=== PATIENT | female | born 1965 | race Caucasian/White ===

== ENCOUNTER 2017-03-31 13:58 | Emergency (ER) | payer BC ==
[2017-03-31] MEDS ORDERED: KETOROLAC 30 MG/ML VIAL IVP ONE (14:18)
[2017-03-31] MEDS ORDERED: MORPHINE SULFATE 5 MG/ML PFS IVP ONE (14:18)
--- NOTE | 2017-03-31 14:22 | Emergency Department Record ---
History of Present Illness - General Chief complaint: Pain Stated complaint: RT SIDE RIB INJURY Time Seen by Provider: 03/31/17 14:03 Source: Patient, Family Mode of Arrival: Wheelchair Limitations: No limitations - History of Present Illness Initial comments: 51 yo female presents with right upper rib pain. She was leaning over placing object from one tote into another and felt a pop in a right upper anterior rib. She not has pain with movement or palpation of the area. It hurts to move, twist or stand up straight. She points to the upper chest at the sternal border. She has had some pain mild at that location for a couple days. No cough. No fever. No abdominal or back pain. MD Complaint: Other (rib pain) Onset/Timin -: Minutes(s) Location: Right History of Same: No Radiation: None Severity scale (1-10): 10 Quality: Sharp Consistency: Constant Improves with: Nothing Worsens with: Exertion, Walking Associated Symptoms: Denies other symptoms - Related Data Home Medications Medication Instructions Recorded Confirmed Last Taken Amitriptyline HCl [Amitriptyline 25 mg PO DAILY 03/31/17 03/31/17 Unknown HCl] Atorvastatin Calcium 20 mg PO DAILY 03/31/17 03/31/17 Unknown Gabapentin [Neurontin] 900 mg PO QHS 03/31/17 03/31/17 Unknown Lisinopril [Lisinopril] 20 mg PO DAILY 03/31/17 03/31/17 Unknown Pramipexole Di-HCl [Mirapex] 1 mg PO QHS 03/31/17 03/31/17 Unknown Previous Rx's Medication Instructions Recorded Diazepam [Valium] 5 mg PO Q8H #15 tab 03/31/17 Hydrocodone/Acetaminophen [Grace 1 each PO Q8H #15 tablet 03/31/17 7.5-325 Tablet] Naproxen [Naprosyn] 500 mg PO Q12H #20 tab 03/31/17 Allergies Allergy/AdvReac Type Severity Reaction Status Date / Time No Known Drug Allergies Allergy Verified 03/31/17 14:13 Travel Screening - Travel/Exposure Within Last 30 Days Have you traveled within the last 30 days?: No Review of Systems Constitutional: Denies: Chills, Fever, Weakness Eyes: Denies: Eye discharge ENT: Denies: Congestion, Throat pain Respiratory: Denies: Cough, Dyspnea, Hemoptysis, Stridor, Wheezes Cardiovascular: Reports: Chest pain. Denies: Dyspnea on exertion, Edema, Palpitations, Syncope Endocrine: Denies: Fatigue, Polydipsia, Polyuria Gastrointestinal: Denies: Abdominal pain, Diarrhea, Nausea, Vomiting Genitourinary: Denies: Dysuria, Urgency Musculoskeletal: Denies: Arthralgia, Back pain, Joint swelling, Myalgia, Neck pain Skin: Denies: Bruising, Change in color, Rash Neurological: Denies: Headache, Numbness, Vertigo, Weakness Psychiatric: Denies: Anxiety Hematological/Lymphatic: Denies: Easy bleeding, Easy bruising Past Medical History - SOCIAL HISTORY Smoking Status: Current every day smoker Alcohol Use: Occassional Drug Use: None - RESPIRATORY Hx Respiratory Disorders: No - CARDIOVASCULAR Hx Cardio Disorders: Yes Hx Hypertension: Yes - NEURO Hx Neuro Disorders: No - GI Hx GI Disorders: No - Hx Genitourinary Disorders: No - ENDOCRINE Hx Endocrine Disorders: No - MUSCULOSKELETAL Hx Musculoskeletal Disorders: Yes - PSYCH Hx Psych Problems: Yes Hx Anxiety: Yes Hx Depression: Yes - HEMATOLOGY/ONCOLOGY Hx Hematology/Oncology Disorders: No Family Medical History Any Significant Family History?: No Physical Exam - General General Appearance: Alert, Oriented x3, Cooperative, No acute distress, Anxious (due to pain) Limitations: No limitations - Head Head exam: Atraumatic, Normocephalic, Normal inspection - Eye Eye exam: Normal appearance. negative: Conjunctival injection, Periorbital swelling - ENT ENT exam: Normal exam Ear exam: Normal external inspection Nasal Exam: Normal inspection Mouth exam: Normal external inspection - Neck Neck exam: Normal inspection, Full ROM. negative: Tenderness - Respiratory Respiratory exam: Normal lung sounds bilaterally, Chest wall tenderness (very focal and reproducible right sided rib/sternal junction pain, no palpable deformity). negative: Accessory muscle use, Decreased breath sounds, Respiratory distress - Cardiovascular Cardiovascular Exam: Normal rhythm, Normal heart sounds, Tachycardia Peripheral Pulses: 2+: Radial (R), Radial (L) - GI/Abdominal GI/Abdominal exam: Soft. negative: Tenderness - Rectal Rectal exam: Deferred - exam: Deferred - Extremities Extremities exam: Normal inspection, Full ROM, Normal capillary refill. negative: Tenderness - Back Back exam: Reports: Normal inspection, Full ROM, Other (old healed scars). Denies: CVA tenderness (R), CVA tenderness (L), Muscle spasm, Paraspinal tenderness, Rash noted, Tenderness, Vertebral tenderness - Neurological Neurological exam: Alert, Normal gait, Oriented X3 - Psychiatric Psychiatric exam: Anxious (due to pain), Normal affect, Normal mood - Skin Skin exam: Dry, Intact, Normal color, Warm Course Vital Signs 03/31/17 14:07 Temperature 98.8 F Pulse Rate 120 H Respiratory 20 Rate Blood Pressure 151/122 Pulse Ox 95 - Reevaluation(s) Reevaluation #1: The XR was negative for acute pathology, rib fracture, PTX 03/31/17 15:09 Reevaluation #2: The results were discussed with the patient She is starting to get relief 03/31/17 15:14 HR much improved with better pain control We discussed home care and reasons to return to the ED 03/31/17 Disposition Disposition: Discharge Clinical Impression: Rib pain on right side Disposition: Home, Self-Care Condition: (1) Good Instructions: Chest Wall Pain (ED) Additional Instructions: Rest and avoid lifting or activity Return if worse, short of breath, fever, cough, or any new concerns Prescriptions: Diazepam [Valium] 5 mg PO Q8H #15 tab Hydrocodone/Acetaminophen [Grace 7.5-325 Tablet] 1 each PO Q8H #15 tablet Naproxen [Naprosyn] 500 mg PO Q12H #20 tab.dr Forms: Patient Portal Access Quality - Quality Measures Quality Measures: N/A - Blood Pressure Screening View Details: Yes Blood Pressure Classification: Normal BP Reading Systolic Measurement: 105 Diastolic Measurement: 68 Screening for High Blood Pressure: < Normal BP, F/U Not Required > [[id number]] Normal BP Follow-up Interventions: No follow-up required
[2017-03-31] MEDS ORDERED: DIAZEPAM 5 MG/1 ML TUBX IVP ONE (14:58)
--- NOTE | 2017-04-02 14:19 | RADIOLOGY REPORT ---
EXAM: RIGHT RIBS WITH PA CHEST HISTORY: PATIENT BENT OVER TO PICK SOMETHING UP AND A RIGHT RIB POPPED. ANTERIOR UPPER RIGHT RIB PAIN. TECHNIQUE: A PA view of the chest and four views of the right ribs were obtained. Comparison: None. FINDINGS: Electrical stimulator leads are present within the mid thoracic region. The heart, mediastinum and pulmonary vasculature are normal. There are no acute infiltrates or effusions. There is no pneumothorax. There are old healed rib fractures bilaterally. There is no visible acute fracture. Mild arthritic changes are present within the spine and shoulders. There is mild levoconvex curvature within the thoracic spine and dextroconvex curvature within the lumbar spine. Post surgical changes are also noted within the lower lumbar spine. IMPRESSION: 1. NO ACUTE CHEST OR RIB PATHOLOGY. 2. OLD HEALED RIB FRACTURES BILATERALLY. JOB NUMBER: [id number] MTDD
== END 2017-03-31 15:29 | disposition home or self-care (01) ==
LOC: ER 13:58
DX: R07.81 Pleurodynia (principal); I10 Essential (primary) hypertension; Z87.891 Personal history of nicotine dependence
CPT/HCPCS: 99284 ×2; 96374; 96375; 71101; J1885; J2270; J3360

== ENCOUNTER 2018-02-06 13:11 | Day surgery (SDC) | payer OTHER ==
--- NOTE | 2018-02-06 06:38 | History and Physical Report ---
DATE: 02/06/18. CHIEF COMPLAINT AND HISTORY OF CHIEF COMPLAINT: This patient presents with a history of a postlumbar laminectomy radiculopathy. Due to the failure of all therapies and the lack of options including no further surgical options, she is here for intraspinal infusion trial with hydromorphone to determine if the implantation of a permanent system can be of any value in pain control. PAST MEDICAL HISTORY: Cardiac irregularity, arrhythmia, reflux esophagitis, restless leg syndrome. PAST SURGICAL HISTORY: Lumbar spinal surgery, hysterectomy. EMPLOYMENT STATUS: Off work. MEDICATIONS ON ADMISSION: To be provided. ALLERGIES: None listed. SOCIAL HISTORY: Smoking, caffeine. FAMILY HISTORY: Hypertension, cancer, coronary artery disease. REVIEW OF SYSTEMS: The patient is painful and fully oriented and appropriate. The remainder of the systems review shows glasses, peripheral edema, irregular heart rate, gastric pain, depression, difficulty sleeping. PHYSICAL EXAMINATION: General: Height and weight are not available. Weight: Unavailable. Vital Signs: Unavailable. HEENT: Within normal limits. Lungs: Clear. Heart: Regular rate and rhythm. Abdomen: Nontender. Musculoskeletal: Examination of the musculoskeletal system shows diffuse tenderness throughout the lumbar spine adjacent to a large laminectomy scar. Range of motion does produce pain throughout the low back and extending into the lower extremities. Her lower extremity motor and sensory field function shows sensory abnormalities across the front and back surface of both legs. Her motor function shows a generalized weakness across the front and back surface with distributions at L4 and l5. Ambulation: Assistive device utilized. Neurologic: Cranial nerves are intact. IMPRESSION: 1. POSTLUMBAR LAMINECTOMY SYNDROME, ICD-10 CODE M96.1. 2. LUMBAR RADICULOPATHY, ICD-10 CODE M54.16 AND M54.17. PLAN: The patient is here for an implanted spinal catheter infusion trial with hydromorphone. We will implant the catheter surgically to help prevent the incidence of spinal headaches and to reduce the number of instrumentations in the spine. An epidural blood patch will be performed as an ancillary measure to help reduce the incidence of spinal headaches. An overnight stay will be encouraged to maintain activity levels. The potential risks, side effects, and complications including spinal cord trauma, paralysis, nerve root injury, spinal headaches, and failure of the therapy have all been discussed and reviewed. The patient understands and has agreed to proceed. We will consider the procedure outpatient although, as stated, an overnight stay will be encouraged. JOB NUMBER: [id number] cc: Swathi Tapia, Nurse Practitioner LIN
[~2018-02-06 13:11] MED LIST: ACETAMINOPHEN 1,000 MG/100 ML BTL IV ONE; CEFAZOLIN 2 Gram 2 GM/50 ML BAG IVPB ONE; FAMOTIDINE 20MG TABLET PO ONE; HYDROMORPHONE PF 2MG/ML AMP 0.008 MG in 0.9 % SODIUM CHLORIDE 10ML VIA 0.996 ML IV ONE; HYDROMORPHONE PF 2MG/ML AMP 4 MG in 0.9 % SODIUM CHLORIDE 500ML 498 ML IV ONE; MECLIZINE 25 MG TABLET PO ONE; METOCLOPRAMIDE 10 MG TABLET PO ONE
[2018-02-06] MEDS ORDERED: FENTANYL PF 100MCG/2ML VIAL IV ONE (13:12)
[2018-02-06] MEDS ORDERED: HYDROMORPHONE HCL 2 MG/ML VIAL IV ONE (13:12)
[2018-02-06] MEDS ORDERED: LIDOCAINE 2% MDV (20MG/ML) 20ML VIAL IV ONE (13:12)
[2018-02-06] MEDS ORDERED: BUPIVACAINE 0.5% W/EPI MPF 30 ML VIAL IVP ONE (13:12)
[2018-02-06] MEDS ORDERED: CEFAZOLIN 1G VIAL IM ONE (13:12)
[2018-02-06] MEDS ORDERED: PROPOFOL 10 MG/ML VIAL IV ONE (13:12)
[2018-02-06] MEDS ORDERED: LIDOCAINE 1% W/EPI 1:200,000 MPF 30ML SQ ONE (13:12)
[2018-02-06] MEDS ORDERED: MIDAZOLAM HCL 2MG/2ML VIAL IV ONE (13:12)
[2018-02-06] MEDS ORDERED: SENNOSIDES/DOCUSATE SODIUM UD CAPSULE PO PRN ×2 (16:44)
[2018-02-06] MEDS ORDERED: TEMAZEPAM 15 MG CAPSULE PO PRN ×2 (16:44)
[2018-02-06] MEDS ORDERED: DIPHENHYDRAMINE HCL 25 MG CAPSULE PO PRN (16:44)
[2018-02-06] MEDS ORDERED: HYDROMORPHONE HCL 2 MG/ML VIAL IM PRN ×2 (16:44)
[2018-02-06] MEDS ORDERED: HYDROCODONE/APAP 7.5/325MG TABLET PO PRN ×2 (16:44)
[2018-02-06] MEDS ORDERED: METOCLOPRAMIDE 10 MG TABLET PO PRN (16:44)
[2018-02-06] MEDS ORDERED: NALOXONE 0.4 MG/1 ML VIAL IVP PRN (16:44)
[2018-02-06] MEDS ORDERED: AL HYDROX/MAG HYDROX 30ML UD PO PRN (16:44)
[2018-02-06] MEDS ORDERED: ACETAMINOPHEN 325 MG TAB PO PRN ×2 (16:44)
[2018-02-06] MEDS ORDERED: DIPHENHYDRAMINE HCL 50 MG/ML VIAL IVP PRN ×2 (16:44)
[2018-02-06] MEDS ORDERED: OXYCODONE/APAP 10MG-325MG TABLET PO PRN (16:44)
[2018-02-06] MEDS ORDERED: METOCLOPRAMIDE HCL 10 MG/2 ML VIAL IVP PRN (16:44)
[2018-02-06] MEDS ORDERED: ALBUTEROL HFA 8 GM INHALER INH PRN (16:47)
[2018-02-06] MEDS ORDERED: ATORVASTATIN 20 MG TABLET PO SCH (22:00)
[2018-02-06] MEDS ORDERED: GABAPENTIN 300 MG CAPSULE PO SCH (22:00)
[2018-02-06] MEDS ORDERED: LOSARTAN POTASSIUM 25 MG TABLET PO SCH (22:00)
[2018-02-06] MEDS ORDERED: PRAMIPEXOLE DI-HCL 0.25 MG TABLET PO SCH (22:00)
[2018-02-06] MEDS: CEFAZOLIN 2 Gram 2 GM/50 ML BAG IVPB SCH (22:05)
[2018-02-06] MEDS: OXYCODONE/APAP 10MG-325MG TABLET PO PRN (22:19)
[2018-02-06] MEDS: DIPHENHYDRAMINE HCL 25 MG CAPSULE PO PRN (22:20)
[2018-02-07] MEDS: OXYCODONE/APAP 10MG-325MG TABLET PO PRN ×2 (02:06→05:52)
[2018-02-07] MEDS: RINGERS SOLUTION,LACTATED 1,000 ML IV SCH ×2 (02:08→02:12)
[2018-02-07] MEDS: DIPHENHYDRAMINE HCL 25 MG CAPSULE PO PRN (02:10)
[2018-02-07] MEDS ORDERED: ALBUTEROL SULFATE (0.083%) 2.5 MG/3 ML NEB INH ONE (06:34)
[2018-02-07] MEDS: CEFAZOLIN 2 Gram 2 GM/50 ML BAG IVPB SCH (06:43)
[2018-02-07] MEDS ORDERED: PANTOPRAZOLE SODIUM 40 MG TABLET PO SCH (07:00)
--- NOTE | 2018-02-07 21:47 | Operative Note - [facility] ---
DATE OF SURGERY: 02/06/18. PREOPERATIVE DIAGNOSIS: 1. POST LUMBAR LAMINECTOMY SYNDROME, ICD-10 CODE = M96.1. 2. LUMBAR RADICULOPATHY, ICD-10 CODE = M54.16 AND M54.17. SURGERY: 1. FLUOROSCOPIC-GUIDED ACCESS SPINAL SPACE AT L1-2, PLACEMENT OF THIN-WALLED SPINAL CATHETER T12. 2. DIAGNOSTIC MYELOGRAPHY WITH RADIOLOGIC SUPERVISION AND INTERPRETATION. 3. SPINAL OPIOID BOLUS HYDROMORPHONE 0.004 MG SPINAL SPACE. 4. INCISION, SUBCUTANEOUS DISSECTION, AND ANCHORING OF SPINAL CATHETER TO SUPRASPINOUS FASCIA WITH ANCHORING DEVICE AND NONABSORBABLE SUTURE. 5. INCISION, SUBCUTANEOUS DISSECTION, AND CREATION OF SUBCUTANEOUS POUCH AT RIGHT POSTERIOR GLUTEAL MARGIN, EVENTUALLY FOR PLACEMENT OF PUMP ITSELF. 6. TUNNELING SPINAL CATHETER INTO RIGHT POSTERIOR GLUTEAL POUCH. INTERFACE SPINAL CATHETER WITH SECONDARY SPINAL COMPONENT. SECOND CATHETER COMPONENT TUNNELED 6 CM SUPERIOR. 7. INTERFACE EXTERNAL CATHETER COMPONENT WITH SPINAL INFUSION PUMP EXTERNAL, SET TO DELIVER HYDROMORPHONE AT 0.08 MG PER DAY. 8. EPIDURAL BLOOD PATCH AT L2-3, 20 ML AUTOLOGOUS BLOOD STERILE TECHNIQUE FROM USING A #17 GAUGE SIX-INCH TUOHY NEEDLE WITH [id number]. 9. TRANSPORT PATIENT FLAT, PILLOW UNDER HEAD AND KNEES TO RECOVERY ROOM ASYMPTOMATIC, FULL UPPER AND LOWER EXTREMITY FUNCTIONALITY, NO UNUSUAL SYMPTOM PATTERNS, AWAKE AND RESPONSIVE. SURGEON: RAÚL SCALES D.O. ANESTHESIA: LOCAL SEDATION. ANESTHESIA PROVIDER: ANISHA SOLANO CRNA INDICATION: This patient presents with a history of mutiply-operated spine with fusion 3-4 to 5-1, pedicle screw, rods, and cages. Due to the failure of all therapies, she is here for a spinal opioid infusion trial with an implanted catheter with Hydromorphone to determine if the implantation of a permanent system can be of any value in pain control. PROCEDURE: Intravenous line, vital sign monitoring, IV sedation by Anesthesia, patient positioned prone. Sterile prep, sterile technique. The only available interspaces above the fusion are at 1-2 and 2-3. The 2-3 will be left for the epidural blood patch and 1-2 for the access. Under imaging, using a slight paramedian approach and a #20 gauge spinal needle with bevel to the long axis, skin at 1-2 infiltrated and then using AP and lateral images, the needle was walked very slowly into the spinal space on a lateral view. With CSF flow, a thin-walled spinal catheter was advanced and positioned at the mid to lower endplate of T12. CSF flow was noted through the catheter. The skin above and below the needle infiltrated, incision made and subcutaneous dissection was conducted to the supraspinous fascia. The needle was removed and then the catheter was anchored to the supraspinous fascia with an anchoring device and nonabsorbable suture. Once the stylet had been removed from the catheter, CSF flow was again noted. Suture was then applied in a [id number] around the catheter penetration point to prevent any ratcheting of the catheter. At the right posterior gluteal margin, a site that would eventually be for the pump, was then infiltrated, incision made, and subcutaneous dissection was conducted to form a small subcutaneous pouch. A tunneling tool was then used to bridge the sinal catheter insertion and the posterior gluteal pouch. The tunneling tool was then used to carry the spinal catheter into the gluteal pouch. The spinal catheter was resected and interfaced with the second catheter component by way of a connector. The second catheter component was tunneled 6 cm superior for the gluteal pouch. The external catheter was then interfaced with an external pump set to deliver Hydromorphone at 0.08 mg a day. The midline incision was closed with Vicryl for fascia and a running nylon for skin. The posterior gluteal incision was closed with a running nylon for skin. At that point, at L3-4, the level above the fusion, was infiltrated. A #17 gauge Tuohy needle with [id number] was used to gain entrance into the epidural space. Simultaneously, 20 mL of autologous blood drawn with sterile technique from the left antecubital. The blood was placed onto the field maintaining its sterility and then an epidural blood patch was performed at this level with this blood. Needle removed. A sterile dressing was applied securing the catheter and all connections under sterile dressing. She was transported to the Recovery Room flat, pillow under head and knees. She was asymptomatic of any lower extremity abnormalities. She had full sensation and full functionality. There were no unusual pain patterns. She was awake and responsive. She was transported to the Floor flat. She will stay flat for four hours, slowly elevated for one, kept overnight for observation, and discharged in the morning. DISCHARGE INSTRUCTIONS: 1. The sites will remain clean and dry. No showering in any way that would disrupt dressings. If it happens, contact the Clinic. 2. Standard medications resumed, including the antibiotic, Levaquin, 500 mg once a day for 14 days. 3. Spinal opioid side-effects including respiratory depression, nausea, vomiting, constipation, urinary retention, lightheadedness or rash have all been discussed and reviewed. Should it happen, she should contact the Clinic or go to the local Emergency Room. 4. She is at risks, as explained to her , for the next 3 to 5 days for a spinal headache. Even once discharged to home, her activities should stay low. Whenever she is sitting, she should be in a semi-recumbent position. She should drink plenty of fluids including caffeinated beverages. Should the headache occur, plenty of fluids, stay flat, 12 to 24 hours, contact the Clinic. All other instructions provided, numbers to contact if problems given. 5. Increases will be set up. The first will happen within the next 48 hours. The office will contact the patient at home to set up this evaluation and increase. cc: Dr. Andino, Neurosurgeon, [facility] Swathi Tapia NP JOB NUMBER: [id number] MTDDiego
--- NOTE | 2018-02-08 09:44 | RADIOLOGY REPORT ---
EXAM: THORACOLUMBAR SPINE, SINGLE VIEW HISTORY: POSTOP. TECHNIQUE: A single frontal view of the lumbar spine and lower thoracic spine was obtained. Comparison: Intraoperative image from today's date. FINDINGS: This is a significantly poor quality exam due to technique. Post surgical changes of the lumbar spine. Partial visualization of stimulating wires which project over the lower thoracic spine, incompletely imaged on this study. Catheter projects over the right lower quadrant. IMPRESSION: SIGNIFICANTLY LIMITED STUDY DUE TO POOR QUALITY. POST SURGICAL CHANGES OF THE LUMBAR SPINE. STIMULATING DEVICE PROJECTS OVER THE LOWER THORACIC SPINE. JOB NUMBER: [id number] [facility]
== END 2018-02-07 11:04 | disposition home or self-care (01) ==
LOC: SUR 13:11 → MEDSURG 17:21 → SUR 02-07 11:04
PROVIDERS: ATTEND Pain Medicine Interventional Pain Medicine
DX: M96.1 Postlaminectomy syndrome, not elsewhere classified (principal); M54.16 Radiculopathy, lumbar region; M54.17 Radiculopathy, lumbosacral region; I10 Essential (primary) hypertension; E78.00 Pure hypercholesterolemia, unspecified; K21.9 Gastro-esophageal reflux disease without esophagitis; G25.81 Restless legs syndrome; J45.909 Unspecified asthma, uncomplicated
CPT/HCPCS: 62350; 62362; 00630; 72020; 94640; 94760; J3010; J1170 ×2; J0690 ×2; J7040; J7120; J7613

== ENCOUNTER 2018-02-20 12:49 | Inpatient (IN) | payer OTHER, BC ==
--- NOTE | 2018-02-20 07:00 | History and Physical Report ---
DATE: 02/20/2018. CHIEF COMPLAINT AND HISTORY OF CHIEF COMPLAINT: This patient presents with a history of an intractable postlaminectomy syndrome. She has an implanted spinal catheter infusion trial with hydromorphone. Due to the failure of all therapy, the trial was conducted. She has achieved greater than 75 percent pain control. She had a number of reactions with allergic responses to antibiotics which resulted in peripheral edema. This was felt not to be related to the hydromorphone, although it cannot be fully ruled out. We had suggested a number of different options. The patient requested an implant and if necessary a medication change. PAST MEDICAL HISTORY: Cardiac arrhythmia, reflux, restless leg syndrome, postlaminectomy syndrome. PAST SURGICAL HISTORY: Multiple lumbar spinal surgeries, hysterectomy. EMPLOYMENT STATUS: Off work. MEDICATIONS ON ADMISSION: To be provided. ALLERGIES: None. SOCIAL HISTORY: Smoking, caffeine. FAMILY HISTORY: Hypertension, cancer, coronary artery disease. REVIEW OF SYSTEMS: The patient is appropriate and in no acute distress. The remainder of the systems review shows glasses, peripheral edema, irregular heartbeat, gastric pain, depression, difficulty sleeping. PHYSICAL EXAMINATION: General: Height and weight are unavailable. Vital Signs: Unavailable. HEENT: Within normal limits. Lungs: Clear. Heart: Regular rate and rhythm. Abdomen: Nontender. Musculoskeletal: Examination of the musculoskeletal system shows the dressings for the implanted catheter trial are fully intact. The externalized pump is noted. All connections are intact. Primary pain pattern is in the bilateral lower extremities, postlaminectomy. Motor and sensory field function in the lower extremities shows sensory and motor abnormalities across the anterior and posterior components of both legs following an L4-L5 distribution. Ambulation: No assistive device utilized, although an assistive device is used frequently. Neurologic: Cranial nerves are intact. IMPRESSION: 1. POSTLUMBAR LAMINECTOMY SYNDROME, ICD-10 CODE M96.1. 2. LUMBAR RADICULOPATHY, ICD-10 CODE M54.16 AND M54.17. 3. IMPLANTED SPINAL CATHETER INFUSION TRIAL WITH HYDROMORPHONE. PLAN: Due to the failure of all therapy and the success of the trial, she is here for implantation of a permanent system. She has had peripheral edema. She has a history of peripheral edema. Our assumption is that this has been an antibiotic-related problem. She has achieved up to greater than 75 percent pain control and is pushing for the implant. We explained the possibility that if increases demonstrate further peripheral edema that we may have to change the medication within the device to a fentanyl and bupivacaine mixture. The patient understands this fully. The risks and complications have been discussed. The patient and her want to move forward as quickly as possible. JOB NUMBER: [id number] cc: Swathi Tapia, Nurse Practitioner MTDD
[~2018-02-20 12:49] MED LIST changes: +HYDROMORPHONE HCL 0.032 GM in 0.9 % SODIUM CHLORIDE 10ML VIA 40 ML IV ONE; +HYDROMORPHONE PF 2MG/ML AMP 0.004 MG in 0.9 % SODIUM CHLORIDE 10ML VIA 0.998 ML IV ONE; -HYDROMORPHONE PF 2MG/ML AMP 0.008 MG in 0.9 % SODIUM CHLORIDE 10ML VIA 0.996 ML IV ONE; -HYDROMORPHONE PF 2MG/ML AMP 4 MG in 0.9 % SODIUM CHLORIDE 500ML 498 ML IV ONE
[2018-02-20] MEDS ORDERED: BUPIVACAINE 0.5% W/EPI MPF 30 ML VIAL IVP ONE (12:50)
[2018-02-20] MEDS ORDERED: MIDAZOLAM HCL 2MG/2ML VIAL IV ONE (12:50)
[2018-02-20] MEDS ORDERED: LIDOCAINE 1% W/EPI 1:200,000 MPF 30ML SQ ONE (12:50)
[2018-02-20] MEDS ORDERED: FENTANYL PF 100MCG/2ML VIAL IV ONE (12:50)
[2018-02-20] MEDS ORDERED: HYDROMORPHONE HCL 2 MG/ML VIAL IV ONE (12:50)
[2018-02-20] MEDS ORDERED: PROPOFOL 10 MG/ML VIAL IV ONE (12:50)
[2018-02-20] MEDS ORDERED: LIDOCAINE 2% MDV (20MG/ML) 20ML VIAL IV ONE (12:50)
[2018-02-20] MEDS ORDERED: METOCLOPRAMIDE HCL 10 MG/2 ML VIAL IVP PRN (18:01)
[2018-02-20] MEDS ORDERED: ACETAMINOPHEN 325 MG TAB PO PRN ×2 (18:01)
[2018-02-20] MEDS ORDERED: HYDROMORPHONE HCL 2 MG/ML VIAL IM PRN ×2 (18:01)
[2018-02-20] MEDS ORDERED: TEMAZEPAM 15 MG CAPSULE PO PRN ×2 (18:01)
[2018-02-20] MEDS ORDERED: DIPHENHYDRAMINE HCL 25 MG CAPSULE PO PRN ×2 (18:01)
[2018-02-20] MEDS ORDERED: SENNOSIDES/DOCUSATE SODIUM UD CAPSULE PO PRN ×2 (18:01)
[2018-02-20] MEDS ORDERED: METOCLOPRAMIDE 10 MG TABLET PO PRN (18:01)
[2018-02-20] MEDS ORDERED: HYDROCODONE/APAP 7.5/325MG TABLET PO PRN ×2 (18:01)
[2018-02-20] MEDS ORDERED: OXYCODONE/APAP 10MG-325MG TABLET PO PRN (18:01)
[2018-02-20] MEDS ORDERED: DIPHENHYDRAMINE HCL 50 MG/ML VIAL IVP PRN ×2 (18:01)
[2018-02-20] MEDS ORDERED: AL HYDROX/MAG HYDROX 30ML UD PO PRN (18:01)
[2018-02-20] MEDS ORDERED: NALOXONE 0.4 MG/1 ML VIAL IVP PRN (18:03)
[2018-02-20] MEDS ORDERED: ALBUTEROL HFA 8 GM INHALER INH PRN (18:08)
[2018-02-20] MEDS: IPRATROPIUM/ALBUTEROL (0.5MG/3MG) NEB INH SCH ×2 (18:12→21:40)
[2018-02-20] MEDS: RINGERS SOLUTION,LACTATED 1,000 ML IV SCH (22:08)
[2018-02-20] MEDS: PRAMIPEXOLE DI-HCL 0.25 MG TABLET PO SCH (22:35)
[2018-02-20] MEDS: ATORVASTATIN 20 MG TABLET PO SCH (22:35)
[2018-02-20] MEDS: LOSARTAN POTASSIUM 25 MG TABLET PO SCH (22:35)
[2018-02-20] MEDS: GABAPENTIN 300 MG CAPSULE PO SCH (22:35)
[2018-02-20] MEDS: CEFAZOLIN 2 Gram 2 GM/50 ML BAG IVPB SCH (22:36)
[2018-02-21] MEDS: OXYCODONE/APAP 10MG-325MG TABLET PO PRN ×2 (01:54→08:41)
[2018-02-21] MEDS: RINGERS SOLUTION,LACTATED 1,000 ML IV SCH ×2 (01:56→15:12)
[2018-02-21] MEDS: IPRATROPIUM/ALBUTEROL (0.5MG/3MG) NEB INH SCH ×5 (05:59→21:43)
[2018-02-21] MEDS: CEFAZOLIN 2 Gram 2 GM/50 ML BAG IVPB SCH ×2 (06:04→21:09)
[2018-02-21] MEDS: PANTOPRAZOLE SODIUM 40 MG TABLET PO SCH (06:04)
[2018-02-21] MEDS ORDERED: METHYLPREDNISOLONE PF 125MG/VIAL IVP ONE (13:22)
[2018-02-21] MEDS ORDERED: CEFTRIAXONE SODIUM 1 GM in 0.9 % SODIUM CHLORIDE 100ML 100 ML IVPB ONE (13:27)
[2018-02-21] MEDS ORDERED: AZITHROMYCIN 500 MG TABLET PO ONE (13:27)
[2018-02-21] MEDS ORDERED: CEFTRIAXONE 1GM/50ML BAG 1 GM/50 ML BAG IVPB ONE (13:45)
[2018-02-21 13:50] LABS: BASO % 0.3 % (0-6); EOS % 1.9 % (0-6); GRAN % 68.3 % (47-80); HEMATOCRIT 37.9 % (35.0-47.0); HEMOGLOBIN 11.5 gm/dl (11.6-16.0); LYMPH % 18.4 % (16-45); MEAN CELL VOLUME 93.1 fl (81-97); MEAN CORPUSCULAR HGB CONC 30.3 g/dl (32-36); MEAN PLATELET VOLUME 10.3 fl (7.4-10.4); MONO % 11.1 % (0-9); PLATELET COUNT 257 K/uL (130-400); RED BLOOD COUNT 4.07 M/uL (3.80-5.40); RED CELL DISTRIBUTION WIDTH 17.1 % (11.5-14.5); WHITE BLOOD COUNT W/O DIFF 12.4 K/uL (4.2-12.2)
[2018-02-21 14:00] LABS: BLOOD UREA NITROGEN 9 mg/dL (6-20); CREATININE 0.7 mg/dL (0.5-0.9); EST GLOMERULAR FILTRATION RATE > 60 mL/min
[2018-02-21 14:02] LABS: GLUCOSE,RANDOM 119 mg/dL (74-109)
[2018-02-21 14:30] LABS: MEAN CORPUSCULAR HEMOGLOBIN 28.2 pg (27-33)
[2018-02-21] MEDS: CEFTRIAXONE 1GM/50ML BAG 1 GM/50 ML BAG IVPB SCH (22:46)
[2018-02-21] MEDS: ATORVASTATIN 20 MG TABLET PO SCH (22:47)
[2018-02-21] MEDS: GABAPENTIN 300 MG CAPSULE PO SCH (22:48)
[2018-02-21] MEDS: PRAMIPEXOLE DI-HCL 0.25 MG TABLET PO SCH (22:49)
[2018-02-21] MEDS: LOSARTAN POTASSIUM 25 MG TABLET PO SCH (22:49)
[2018-02-22] MEDS: IPRATROPIUM/ALBUTEROL (0.5MG/3MG) NEB INH SCH ×2 (06:14→09:56)
[2018-02-22] MEDS: PANTOPRAZOLE SODIUM 40 MG TABLET PO SCH (07:03)
--- NOTE | 2018-02-22 07:25 | RADIOLOGY REPORT ---
EXAM: CHEST, TWO VIEWS HISTORY: DIFFICULTY BREATHING. TECHNIQUE: Frontal and lateral views of the chest were obtained. Comparison: Prior chest from 03/31/17. FINDINGS: The heart size is normal. Fibrotic changes are noted bilaterally. A stimulating device projects over the mid thoracic spine. Patchy right basilar air space opacity. No pneumothorax. IMPRESSION: UNDERLYING FIBROTIC CHANGES WITH SUPERIMPOSED AIR SPACE OPACITY RIGHT LUNG BASE MAY REFLECT PNEUMONITIS. FOLLOW-UP RECOMMENDED. JOB NUMBER: [id number] MTDD
--- NOTE | 2018-02-22 09:00 | Medical Records Consult ---
DATE OF CONSULTATION: 02/21/2018 REASON FOR CONSULTATION: Low pulse ox after surgery. HISTORY OF PRESENT ILLNESS: This 52-year-old female had a pain pump placed in her back yesterday and as they were trying to discharge her home today, her pulse ox was 78%. She was wheezing and had a fever of 101.2. Dr. Vance asked me to see the patient. Brian was at the bedside when I saw the patient. The patient had an opioid trial pump initially 2 weeks ago and this was a permanent pump that was being placed by Dr. Vance. She smokes one pack per day, said she is planning to stop now after this episode. She denies a sore throat. She has a slight cough and wheeze. Her legs are a little bit swollen but she thinks that is from surgery and she had some swelling after a trial pump insertion 2 weeks ago. PHYSICAL EXAMINATION: GENERAL: She had wheezing bilaterally. VITAL SIGNS: Temperature 101. Pulse ox on 2L was 91% to 92% and she is not in respiratory distress. HEENT: Within normal limits. HEART: Regular rate and rhythm. Not tachycardic. LUNGS: Bilateral wheezing. ABDOMEN: Soft. EXTREMITIES: Legs with some edema, 1+. CURRENT MEDICATIONS: Levaquin that was started about 2 weeks ago after trial pump was placed. Dr. Vance puts his patients on that in between the trial pump and the permanent pump. ASSESSMENT: Wheezing, low pulse ox, COPD, asthma. PLAN: Chest x-ray was ordered showing right lower lobe infiltrate. She was given DuoNeb treatments q.4 h. Solu-Medrol 125 IV. CBC and a basic metabolic profile were ordered. WBC 12,400, hemoglobin 11.5, BUN 9, creatinine 0.7, glucose 119. Chest x-ray showing infiltrate right lower lobe. FINAL ASSESSMENT: Right lower lobe pneumonia. PLAN: DuoNeb treatments. Rocephin 1 g IV q.12 h. Azithromycin 500 mg daily. Continue Levaquin. Discussed the case with Dr. Vance who is taking over the care tomorrow. Also oxygen therapy 2L/min to maintain her oxygen above 91%. MTDD
[2018-02-22] MEDS: CEFTRIAXONE 1GM/50ML BAG 1 GM/50 ML BAG IVPB SCH (09:26)
--- NOTE | 2018-02-22 09:33 | Physician Progress Note ---
Subjective - Date Date of Physician Progress Note: 02/22/18 - Subjective Subjective Comment: The patient is awake, alert and oriented. She has no complaint this morning and says that she is ready to go home. She denies any shortness of breath or chest pain. Associated symptoms: negative: Chest pain, Cough, Fever/chills Objective - Vital Signs Vital Signs: Vital Signs - Last 24 Hrs Temp Pulse Pulse Resp BP Pulse Ox 02/22/18 06:00 97.8 F 20 92 L 02/21/18 22:06 84 L 02/21/18 21:44 112 H 24 94 L 02/21/18 21:00 115 H 02/21/18 20:36 90 L 02/21/18 20:30 99.2 F 114 H 22 120/65 80 L 02/21/18 18:12 91 L 02/21/18 14:08 100 H 22 93 L 02/21/18 13:00 100.9 F H 118 H 20 110/75 94 L 02/21/18 10:09 126 H 22 90 L - General General Appearance: Alert, Oriented x3, Cooperative, No acute distress Limitations: No limitations - Head Head exam: Normal inspection - Eye Eye exam: Normal appearance, PERRL Pupils: Normal accommodation - Respiratory Respiratory exam: Normal lung sounds bilaterally. negative: Respiratory distress - Cardiovascular Cardiovascular Exam: Regular rate, Normal rhythm, Normal heart sounds Peripheral Pulses: 1+: Dorsalis Pedis (R), Dorsalis Pedis (L), 3+: Radial (R), Radial (L) - GI/Abdominal GI/Abdominal exam: Soft, Normal bowel sounds. negative: Tenderness - Extremities Extremities exam: Pedal edema Assessment and Plan - Assessment and Plan (1) RLL pneumonia Current Visit: Yes Status: Acute Base Code: J18.1 - LOBAR PNEUMONIA, UNSPECIFIED ORGANISM Comment: 02/22/18: - CXR: RLL airspace opacity. Fibrotic changes. - D/C IV antibiotics and start PO Cefdinir 300mg BID and Azithromycin 500mg daily for a remaining 8 days. - Repeat chest radiograph as per the patient's PCP. - Discontinue smoking and she will likely need a PFT and treatment for COPD. - Medicine will sign-off and provided recommendations to the admitting service. - Disposition Disposition: Medicine will sign off and relay recommendations to admitting service. Results - Labs Result Diagrams: 02/21/18 13:23 02/21/18 13:23 Labs Last 24 Hours: Laboratory Results - last 24 hr 02/21/18 02/21/18 02/21/18 13:23 13:23 13:23 WBC 12.4 H RBC 4.07 Hgb 11.5 L Hct 37.9 MCV 93.1 MCH 28.2 MCHC 30.3 L RDW 17.1 H Plt Count 257 MPV 10.3 Gran % 68.3 Lymphocytes % 18.4 Monocytes % 11.1 H Eosinophils % 1.9 Basophils % 0.3 APTT 29.4 Sodium 141 Potassium 4.4 Chloride 100 Carbon Dioxide 30.0 H Anion Gap 11.0 BUN 9 Creatinine 0.7 Estimated GFR > 60 Random Glucose 119 H Calcium 8.7 DVT/PE Assessment - Risk for VTE Risk for VTE: No Risk Level: Moderate Risk Assessment Date: 02/22/18 Risk Assessment Time: 09:36 VTE Orders Placed or Will Be Placed: Yes - Active Medicaitons Current Medications: Current Medications Acetaminophen (Tylenol 325mg) 325 mg PO Q4H PRN PRN Reason: PAIN/HEADACHE/TEMP>100.5 Acetaminophen (Tylenol 325mg) 650 mg PO Q4H PRN PRN Reason: PAIN/HEADACHE/TEMP>100.5 Hydrocodone Bitart/Acetaminophen ([place] 7.5mg/325mg) 1 each PO Q3H PRN PRN Reason: MILD PAIN Hydrocodone Bitart/Acetaminophen ([place] 7.5mg/325mg) 2 each PO Q3H PRN PRN Reason: MILD PAIN Al Hydroxide/Mg Hydroxide (Maalox) 30 ml PO Q4H PRN PRN Reason: INDIGESTION/HEARTBURN Albuterol Sulfate (Ventolin Hfa) 2 puff INH Q4H PRN PRN Reason: SHORTNESS OF BREATH Albuterol/Ipratropium (Duoneb) 3 ml INH RESP.Q4H.[facility] Last Admin: 02/22/18 06:14 Dose: 3 ml Atorvastatin Calcium (Lipitor) 40 mg PO QHS [facility] Last Admin: 02/21/18 22:47 Dose: 40 mg Azithromycin (Zithromax) 500 mg PO DAILY [facility] Last Admin: 02/22/18 09:26 Dose: 500 mg Diphenhydramine HCl (Benadryl) 25 mg IVP Q4H PRN PRN Reason: ITCHING Diphenhydramine HCl (Benadryl) 50 mg IVP Q4H PRN PRN Reason: ITCHING Diphenhydramine HCl (Benadryl Capsule) 25 mg PO Q4H PRN PRN Reason: ITCHING Diphenhydramine HCl (Benadryl Capsule) 50 mg PO Q4H PRN PRN Reason: ITCHING Last Admin: 02/20/18 19:46 Dose: 50 mg Gabapentin (Neurontin) 600 mg PO QHS [facility] Last Admin: 02/21/18 22:48 Dose: 600 mg Hydromorphone HCl (Dilaudid) 1 mg IM Q4H PRN PRN Reason: SEVERE PAIN Hydromorphone HCl (Dilaudid) 2 mg IM Q4H PRN PRN Reason: SEVERE PAIN Hydromorphone HCl 0.032 gm/ (Sodium Chloride) 40 mls @ 0.1 mls/hr IV ONCE ONE Stop: 03/08/18 21:59 Last Admin: 02/20/18 18:21 Dose: Not Given CEFTRIAXONE 1GM/50ML BAG (Ceftriaxone 1 Gm-D5w Bag) 1 gm in 50 mls @ 200 mls/ hr IVPB Q12HR [facility] Last Admin: 02/22/18 09:26 Dose: 200 mls/hr Losartan Potassium (Cozaar) 25 mg PO QHS [facility] Last Admin: 02/21/18 22:49 Dose: 25 mg Metoclopramide HCl (Reglan) 10 mg PO Q6H PRN PRN Reason: NAUSEA Metoclopramide HCl (Reglan) 10 mg IVP Q6H PRN PRN Reason: NAUSEA Naloxone HCl (Narcan) 0.4 mg IVP .ONCE PRN PRN Reason: DIFFICULTY IN BREATHING Oxycodone/Acetaminophen (Percocet 10-325 Mg Tablet) 1 each PO Q4H PRN PRN Reason: MODERATE PAIN Oxycodone/Acetaminophen (Percocet 10-325 Mg Tablet) 2 each PO Q4H PRN PRN Reason: MODERATE PAIN Last Admin: 02/21/18 08:41 Dose: 2 each [facility]op[facility] Admin: 02/22/18 07:03 Dose: 40 mg Pramipexole Dihydrochloride (Pramipexole Dihydrochloride) 1 mg PO QHS [facility] Last Admin: 02/21/18 22:49 Dose: 1 mg Senna/Docusate Sodium (Senna Plus) 2 each PO BID PRN PRN Reason: CONSTIPATION Senna/Docusate Sodium (Senna Plus) 4 each PO BID PRN PRN Reason: CONSTIPATION Temazepam (Restoril) 15 mg PO QHS PRN PRN Reason: SLEEP Temazepam (Restoril) 30 mg PO QHS PRN PRN Reason: SLEEP AMI Plan - Labs Result Diagrams: 02/21/18 13:23 02/21/18 13:23
[2018-02-22] MEDS ORDERED: CEFDINIR 300 MG CAPSULE PO SCH (09:45)
[2018-02-22] MEDS ORDERED: AZITHROMYCIN 500 MG TABLET PO SCH (10:00)
[2018-02-22] MEDS ORDERED: ALBUTEROL HFA 8 GM INHALER INH PRN ×4 (10:09→13:34)
--- NOTE | 2018-02-22 22:41 | Operative Note - Ferro ---
DATE OF SURGERY: 02/20/18. PREOPERATIVE DIAGNOSES: 1. 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 2. IMPLANTED SPINAL CATHETER INFUSION TRIAL HYDROMORPHONE. SURGERY: 1. INCISION, SUBCUTANEOUS DISSECTION, AND REMOVAL AND REPLACEMENT OF OBSTRUCTED SPINAL CATHETER. 2. INCISION, SUBCUTANEOUS DISSECTION, AND CREATION OF SUBCUTANEOUS POUCH AT RIGHT POSTERIOR GLUTEAL MARGIN FOR PLACEMENT OF PUMP IDENTIFIED A [employer] PROGRAMMABLE 40 ML. 3. FLUOROSCOPIC-GUIDED PLACEMENT OF SPINAL CATHETER USING A PARAMEDIAL APPROACH , #20 GAUGE SPINAL NEEDLE AT L2-3. THIN-WALLED SPINAL CATHETER PLACED MID TO LOWER VERTEBRAL BODY T11. 4. DIAGNOSTIC MYELOGRAPHY WITH RADIOLOGIC SUPERVISION AND INTERPRETATION. 5. BOLUS HYDROMORPHONE SPINAL CATHETER 0.004 MG. 6. TUNNELING SPINAL CATHETER INTO RIGHT POSTERIOR GLUTEAL MARGIN POUCH. RESECT REVISED CATHETER, INTERFACE TO SECOND CATHETER COMPONENT BY WAY OF CONNECTOR. INTERFACE SECOND CATHETER COMPONENT TO PROGRAMMABLE PUMP, PRE-FILLED WITH HYDROMORPHONE 1 MG PER ML. 7. PLACEMENT OF PUMP INTO POUCH SECURING TO POSTERIOR FASCIA WITH NONABSORBABLE SUTURE THREE POINTS PUMP EYELETS. 8. PLACEMENT OF CURVED #24 GAUGE OTERO NEEDLE INTO ACCESS PORT OF PROGRAMMABLE PUMP, ASPIRATION CLEARING CATHETER OF OPIOID AND CSF MIXTURE. 9. DIAGNOSTIC MYELOGRAPHY WITH RADIOLOGIC SUPERVISION AND INTERPRETATION USING ACCESS PORT CONFIRMING FUNCTIONALITY OF PUMP AND CATHETER, APPROPRIATE FLOW CHARACTERISTICS NOTED. 10. CLOSURE OF INCISIONS WITH VICRYL FOR FASCIA, RUNNING NYLON SUTURE FOR SKIN. TEGADERM DRESSING PLACED. NO EPIDURAL BLOOD PATCH PERFORMED BECAUSE OF NO ACCESS. SURGEON: RAÚL SCALES D.O. ANESTHESIA: LOCAL SEDATION. ANESTHESIA PROVIDER: ANISHA SOLANO CRNA INDICATIONS: This patient presents today with a history of an implanted catheter infusion trial Hydromorphone currently at 0.16 mg a day for permanent implantation. Initial indications, 75+% pain control. Over the last 24 hours, prior to her arrival today, patient indicating she had a complete loss of pain control and was back to baseline levels. She was instructed on the permanent system and taken into the Operating Room. PROCEDURE: She was taken to the Operating Room and placed in a prone position. All the external dressings were removed. The external infusion pump, which appeared to be functioning, was stopped and the externalized catheter was clamped. Sterile prep, sterile technique. Under imaging, the midline incision for the catheter was identified. The externalized pump interfaced to the external catheter at the right posterior gluteal margin pouch was imaged, identified, and marked on the skin. The skin was infiltrated and a small pouch was formed at the right posterior gluteal margin at the interface between external and internal catheter. The external catheter was cut and removed by pulling away from the incision. A #25 gauge needle was then inserted into the cut and to the spinal catheter in attempts to aspirate CSF were performed unsuccessfully. At that point, it was assumed catheter obstruction. The midline previous incision for the placement of the spinal catheter was infiltrated, incision made and subcutaneous dissection was conducted to the catheter and its anchoring point. The catheter at the anchor was then interfaced with a #25 gauge needle in attempts to aspirate CSF were performed unsuccessfully. Complete obstruction of the catheter then confirmed. The catheter was removed intact. The radiopaque bead at the end of the catheter identified. A #20 gauge spinal needle was then used to access the spinal space at L2-3 using AP and lateral imaging. It was slowly advanced on the lateral imaging. No fasciculations or pain on the part of the patient. CSF flow noted. Spinal catheter was advanced, position mid to lower body of T11. The needle was removed and the catheter was secured to the supraspinous fascia with nonabsorbable suture. CSF flow still confirmed through the catheter. Diagnostic myelography was then performed. The resulting flow characteristics were smooth linear into the space. Appropriate flow confirmed. Functionality of the catheter at that point confirmed. Catheter tip midline T11. A bolus of Hydromorphone 0.004 mg given through the spinal catheter. The incision at the right posterior gluteal margin was then widened to accommodate a 40 mL programmable pump, which was placed onto the field pre-filled with Hydromorphone 1 mg per mL. Spinal catheter then clamped to stop CSF leak. Once an appropriate size pouch was performed, a tunneling tool was used to carry the spinal catheter into the pump pouch. The spinal catheter was then interfaced with the second catheter component by way of connector. Second catheter component interfaced to pump. Antibiotic irrigation and Bovie for hemostasis. The pump was placed into the pouch and secured to the posterior fascia with nonabsorbable suture. A curved #24 gauge Otero needle was inserted into the access port and 1 mL of catheter contents was aspirated confirming patency of the catheter. The pump was then secured into the pouch with the nonabsorbable suture and a diagnostic myelogram was performed through the access port. Again, confirming appropriate functionality of the system. The midline and posterior gluteal margin pouch were then closed with Vicryl for fascia and a running nylon suture for skin. Tegaderm was placed over the sites. No epidural blood patch could be performed because of the fusion at 3-4 to 5-1, the only access point taken by the catheter placement. She was then transported to the Recovery Room flat, pillow under head and knees and will stay flat for four hours, slowing elevated for one, and be kept overnight for observation. The pump was then programmed to deliver by continuous infusion Hydromorphone at 0.08 mg a day. She will be monitored until the morning and discharged. DISCHARGE INSTRUCTIONS: 1. The site is to remain clean and dry. No showing or bathing in any way that would disrupt dressings. If it happens, contact the clinic. 2. Standard medications resumed including analgesic, [place] 10/325, five a day provided for ten days, 50 total. An antibiotic will be started or restarted, Levaquin 500 mg once a day for 14 days unless not tolerated, Cipro 300 mg three times a day. 3. Spinal opioid side-effects; respiratory depression, nausea, vomiting, constipation, urinary retention, light headedness or rash have all been discussed and reviewed. All other instructions provided, numbers to contact if problems given. She will be evaluated for discharge. cc: Swathi Tapia NP JOB NUMBER: [id number] MTDD
== END 2018-02-22 11:30 | disposition home or self-care (01) | DRG 552 ==
LOC: SUR 12:49 → MEDSURG 17:34 → SUR 02-21 18:51 → MEDSURG 02-21 18:52 → SUR 02-22 11:30
PROVIDERS: ADMIT Pain Medicine Interventional Pain Medicine; ATTEND Pain Medicine Interventional Pain Medicine
DX: M96.1 Postlaminectomy syndrome, not elsewhere classified (principal); M54.16 Radiculopathy, lumbar region; M54.17 Radiculopathy, lumbosacral region; G89.29 Other chronic pain; J44.9 Chronic obstructive pulmonary disease, unspecified; I10 Essential (primary) hypertension; E78.00 Pure hypercholesterolemia, unspecified; K21.9 Gastro-esophageal reflux disease without esophagitis; G25.81 Restless legs syndrome; F17.210 Nicotine dependence, cigarettes, uncomplicated
CPT/HCPCS: 62367; 71046; 80048; 85025; 85730; 94761; C1755; J0696; J1170; J2930; J7120

== ENCOUNTER 2019-08-13 17:05 | Emergency (ER) | payer OTHER, BC ==
[2019-08-13] MEDS ORDERED: HYDROMORPHONE HCL 2 MG/ML VIAL IM ONE ×2 (18:06→18:53)
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
[2019-08-13] MEDS ORDERED: ORPHENADRINE CITRATE 60MG/2ML VIAL IM ONE (18:07)
== END 2019-08-13 19:55 | disposition home or self-care (01) ==
LOC: ER 17:05
DX: S39.012A Strain of muscle, fascia and tendon of lower back, initial encounter (principal); X50.0XXA Overexertion from strenuous movement or load, initial encounter; Y92.410 Unspecified street and highway as the place of occurrence of the external cause; I10 Essential (primary) hypertension; F17.210 Nicotine dependence, cigarettes, uncomplicated
CPT/HCPCS: 96372; 99284; J2360

== ENCOUNTER 2019-09-03 07:44 | Day surgery (SDC) | payer OTHER, BC ==
--- NOTE | 2019-09-03 06:28 | History and Physical - Ferro ---
CHIEF COMPLAINT/HISTORY OF CHIEF COMPLAINT: This patient presents with history of intractable post lumbar laminectomy radiculopathy. Due to the failure of therapy, an implanted spinal opioid infusion system was implanted 02/11/18. Over the last number of months the patient has had the system reduced because of side effects. Because of the side effects unresolved through gradual titrations with lower dose she is here for removal of the device. PAST MEDICAL HISTORY: Cardia arrhythmia, reflux esophagitis, restless leg syndrome, and post lumbar laminectomy radiculopathy. PAST SURGICAL HISTORY: Multiple spinal surgeries, hysterectomy, and pump implant. MEDICATIONS ON ADMISSION: List to be provided. ALLERGIES: None. FAMILY/PSYCHOSOCIAL HISTORY: Social history - Smoking and caffeine. Family history - Hypertension, cancer and coronary artery disease. SYSTEMS REVIEW: The patient is appropriate in no acute distress. The remainder of the system review is noted from chart. PHYSICAL EXAMINATION: Height and weight are not known. Vital signs are not available. HEENT: Within normal limits. LUNGS: Clear. HEART: Rapid and regular. ABDOMEN: Nontender. MUSCULOSKELETAL: Examination of the musculoskeletal system shows the pump pouch in the right posterior gluteal margin. The incision for the catheter approximates the midline upper lumbar perhaps L2-L3. Both incisions are intact. The underlying pain pattern is a post lumbar laminectomy radiculopathy. NEUROLOGIC: Cranial nerves are intact. IMPRESSION: 1. POST LUMBAR LAMINECTOMY SYNDROME, ICD-10 CODE M96.1 WITH RADICULOPATHY, ICD- 10 CODE M54.16 AND M54.17. 2. IMPLANTED SPINAL OPIOID INFUSION SYSTEM WITH SIDE EFFECTS. PLAN: The patient is here for removal of the pump and spinal catheter on an outpatient basis. The risks, side effects and complications have all been reviewed and discussed. JOB NUMBER: [id number] [facility]
[~2019-09-03 07:44] MED LIST changes: -ACETAMINOPHEN 1,000 MG/100 ML BTL IV ONE; +ACETAMINOPHEN 1,000 MG/100 ML BTL IVPB ONE; -HYDROMORPHONE HCL 0.032 GM in 0.9 % SODIUM CHLORIDE 10ML VIA 40 ML IV ONE; -HYDROMORPHONE PF 2MG/ML AMP 0.004 MG in 0.9 % SODIUM CHLORIDE 10ML VIA 0.998 ML IV ONE
[2019-09-03] MEDS ORDERED: HYDROMORPHONE HCL 2 MG/ML VIAL IV ONE (07:45)
[2019-09-03] MEDS ORDERED: MIDAZOLAM HCL 2MG/2ML VIAL IV ONE (07:45)
[2019-09-03] MEDS ORDERED: FENTANYL PF 100MCG/2ML VIAL IV ONE (07:45)
[2019-09-03] MEDS ORDERED: PROPOFOL 10 MG/ML VIAL IV ONE (07:45)
[2019-09-03] MEDS ORDERED: LIDOCAINE 2% MDV (20MG/ML) 20ML VIAL IV ONE (07:45)
[2019-09-03 07:56] LABS: HEMATOCRIT 43.7 % (35.0-47.0); HEMOGLOBIN 13.8 gm/dl (11.6-16.0); MEAN CORPUSCULAR HGB CONC 31.6 g/dl (32-36); MEAN PLATELET VOLUME 10.1 fl (7.4-10.4); PLATELET COUNT 387 K/uL (130-400); RED CELL DISTRIBUTION WIDTH 14.4 % (11.5-14.5); WHITE BLOOD COUNT W/O DIFF 10.1 K/uL (4.2-12.2)
[2019-09-03 08:08] LABS: PARTIAL THROMBOPLASTIN TIME 26.4 SECONDS (24.5-39.1)
[2019-09-03] MEDS ORDERED: RINGERS SOLUTION,LACTATED 1,000 ML IV ONE (08:15)
[2019-09-03] MEDS ORDERED: BUPIVACAINE 0.5% W/EPI MPF 30 ML VIAL SQ ONE (10:20)
[2019-09-03] MEDS ORDERED: LIDOCAINE 1% W/EPI 1:200,000 MPF 30ML SQ ONE (10:20)
[2019-09-03] MEDS ORDERED: CEFAZOLIN 1G VIAL IR ONE (10:20)
[2019-09-03] MEDS ORDERED: PRAMIPEXOLE DI-HCL 0.25 MG TABLET PO SCH (10:56)
--- NOTE | 2019-09-03 12:33 | Operative Note - Ferro ---
DATE OF SURGERY: 09/03/2019 PREOPERATIVE DIAGNOSIS: POST LUMBAR LAMINECTOMY SYNDROME, ICE-10 CODE M96.1 WITH RADICULOPATHY, ICD-10 CODE M54.16 AND M54.17 WITH POST LAMINECTOMY, ICD-10 CODE M96.1 AND INTERSPINAL INFUSION DEVICE WITH SPINAL CATHETER NONFUNCTION. OPERATION: FLUOROSCOPICALLY GUIDED INCISION, SUBCUTANEOUS DISSECTION AND REMOVAL OF INDWELLING PROGRAMMABLE PUMP AND SPINAL CATHETER. SURGEON: Marcel Vance D.O. ANESTHESIA: Local sedation. ANESTHESIA PROVIDER: Alan López CRNA INDICATION: This patient presents with history of intractable lumbar radiculopathy post laminectomy in origin. A pump and spinal catheter is in place. Multiple medications have been used, the initial Dilaudid resulted in side effects, Fentanyl Bupivacaine did not appreciably help, she is here for removal of the system. PROCEDURE: Intravenous line, vital sign monitoring, IV sedation, prepped and draped, sterile technique. Under imaging the spinal catheter approximating L2- L3 was identified, skin infiltrated, incision made, and subcutaneous dissection was conducted to the anchor. The anchor suture was cut, the anchor was removed and the spinal catheter was removed intact. The tip was identified. A pursestring suture has been placed to stop CSF leak around the catheter penetration point. A second suture reinforcing the site to prevent CSF leak was also placed. The pump in the right posterior gluteal margin, skin infiltrated, incision made, and subcutaneous dissection was conducted to the pouch. The pouch was opened, the pump exteriorized and all connections to the original catheter removed. Antibiotic irrigation, Bovie for hemostasis. The incisions were then closed using Vicryl for the fascia and christy for the skin. A dressing was placed. She was transported to the Recovery Room stable. No side effects from the procedure or sedation. When fully awake and alert she was prepared for discharge. She had been kept flat for one hour, and then slowly elevated. DISCHARGE INSTRUCTIONS: 1. The sites are to remain clean and dry. No showering or bathing in any way that would disrupt the dressings. If it happens contact the clinic. 2. Standard medications resumed including the antibiotic Levaquin, she will take 500 mg once a day for fourteen days. 3. Office to contact the patient in 12-24 hours to set up a time in 7-10 days for us to remove the christy and evaluate the site, until then keep activities controlled. All other instructions were provided. JOB NUMBER: [id number] MTDD
== END 2019-09-03 12:00 | disposition home or self-care (01) ==
LOC: SUR 07:44
PROVIDERS: ATTEND Pain Medicine Interventional Pain Medicine
DX: T85.690A Other mechanical complication of cranial or spinal infusion catheter, initial encounter (principal); M54.16 Radiculopathy, lumbar region; M54.17 Radiculopathy, lumbosacral region; I10 Essential (primary) hypertension; K21.9 Gastro-esophageal reflux disease without esophagitis; G25.81 Restless legs syndrome
CPT/HCPCS: 85027; 85610; 85730; J0690; J7120

== ENCOUNTER 2019-09-08 10:43 | Emergency (ER) | payer OTHER, BC ==
[2019-09-08] MEDS ORDERED: CAFFEINE/SODIUM BENZOATE 250MG 500 MG in 0.9 % SODIUM CHLORIDE 100ML 100 ML IVPB ONE (12:42)
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
[2019-09-08] MEDS ORDERED: 0.9 % SODIUM CHLORIDE 1,000 ML BAG IV ONE (12:44)
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
== END 2019-09-08 16:08 | disposition home or self-care (01) ==
LOC: ER 10:43
DX: L76.34 Postprocedural seroma of skin and subcutaneous tissue following other procedure (principal); G97.1 Other reaction to spinal and lumbar puncture; I10 Essential (primary) hypertension; Z87.891 Personal history of nicotine dependence
CPT/HCPCS: 96365; 99284; J3490; J7030